=== PATIENT | male | born 1965 | race Caucasian/White ===

== ENCOUNTER 2020-02-10 00:50 | Day surgery (SDC) | payer SELFPAY ==
[2020-02-10] VITALS (18 sets, daily range): BP systolic 122–159; BP diastolic 64–99; PULSE 66–83; RESP 1–20; TEMP 35.9–37.4; O2SAT 92–100; BMI 29.9
--- NOTE | 2020-02-10 00:55 | ED_ITS ---
HPI - Abdominal Pain <DO Polly Hartley Last Filed: 02/14/20 07:32> General Chief Complaint: Skin/Abscess/Foreign Body Stated Complaint: anal abcess Time Seen by Provider: 02/10/20 00:54 Source: patient Mode of arrival: Ambulatory Limitations: no limitations History of Present Illness HPI narrative: This is a 54-year-old male who comes to the emergency department with complaint of rectal pain for the last several days. Patient states he has a history of rectal abscess several years ago. He states he was seen at [facility] in [place], he describes an incision and drainage but states that it did require a CT to evaluate. He unclear if this was done in the emergency department or if he was saw a surgeon. He has not had a fever. He denies any abdominal pain. He has had some mild nausea. He states that he has pain with bowel movements. He states that he has had normal bowel movements and has not been constipated. He denies any bloody bowel movements or melena. He states that he has felt like it is a little difficult to have urination but has been urinating regularly without dysuria, urgency or frequency. He states that he had a colonoscopy and was told that he had a fissure at 1 point but also that he had an abscess and had an incision and drainage. Patient states symptoms feel similar. He has not appreciated any swelling in the perineum it is all in the rectal region and states it does not feel deeper than the rectum. He denies any other medical issues, denies any home medications. Denies any other prior surgeries besides knee replacements. Denies any allergies to medications. Related Data Previous Rx's Medication Instructions Recorded docusate sodium 100 mg PO BID #60 cap 02/10/20 oxycodone 5 mg PO Q4H PRN #30 tab 02/10/20 Allergies Allergy/AdvReac Type Severity Reaction Status Date / Time No Known Drug Allergies Allergy Verified 02/10/20 01:14 Review of Systems <DO Polly Hartley Last Filed: 02/14/20 07:32> Review of Systems ROS Unobtainable: All systems reviewed & are unremarkable except as noted in HPI and below Patient History <DO Polly Hartley Last Filed: 02/14/20 07:32> Social History Smoking Status: Never smoker alcohol intake: current Exam <Elsie Allison DO - Last Filed: 02/14/20 07:32> Narrative Exam Narrative: GENERAL: Alert and oriented x three, GENERAL: Alert and oriented x three, well-nourished male in mild distress. HEENT: Head normocephalic, atraumatic, EOMI, pupils reactive, face symmetric, moist mucous membranes NECK: Supple, full range of motion CARDIOVASCULAR: Regular rate and rhythm without murmurs, rubs or gallops. RESPIRATORY: Breath sounds equal bilaterally, no wheezes rales or rhonchi. ABDOMEN: Soft, nontender. Normoactive bowel sounds all 4 quadrants. No guarding or rebound, rigidity, no mass. On digital rectal exam on visual exam I am unable to visualize any swelling or obvious erythema or palpable induration. Patient does have some moderate tenderness at the 8 o'clock position On internal exam patient is tender in the same area but I am also unable to evaluate or feel any induration, no external hemorrhoids are noted and I do not palpate any internally. No visual fissures are noted externally. There is no bright red blood or melena on exam. : No CVA tenderness EXTREMITIES: Normal range of motion, no clubbing or edema. Neurovascularly intact NEUROLOGICAL: Cranial nerves II through XII grossly intact. Moving all extremities SKIN: Warm, dry, no petechiae, no rashes or lesions Initial Vital Signs Initial Vital Signs: Vital Signs Temperature 98.0 F 02/10/20 01:05 Pulse Rate 83 02/10/20 01:05 Respiratory Rate 17 02/10/20 01:05 Blood Pressure 155/77 H 02/10/20 01:05 Pulse Oximetry 96 02/10/20 01:05 <Zenaida Montague MD - Last Filed: 02/10/20 11:20> Initial Vital Signs Initial Vital Signs: Vital Signs Temperature 98.0 F 02/10/20 01:05 Pulse Rate 83 02/10/20 01:05 Respiratory Rate 17 02/10/20 01:05 Blood Pressure 155/77 H 02/10/20 01:05 Pulse Oximetry 96 02/10/20 01:05 Course <Elsie Allison DO - Last Filed: 02/14/20 07:32> Orders Ordered: Discontinued Medications Acetaminophen (Tylenol) 325 mg PO PACUNOW PRN PRN Reason: Pain, Mild (1-3) Bupivacaine HCl/Epinephrine Bitart (Sensorcaine 0.25% W/ Epi (Pf)) 60 ml INJ NOW ONE Stop: 02/10/20 11:56 Last Admin: 02/10/20 11:55 Dose: 60 ml Documented by: HALEIGH Bupivacaine Liposome (Exparel) 266 mg INJ NOW ONE Stop: 02/10/20 12:04 Last Admin: 02/10/20 12:03 Dose: 266 mg Documented by: HALEIGH Dibucaine (Nupercainal 1% Oint) 1 applic TOP NOW ONE Stop: 02/10/20 12:03 Last Admin: 02/10/20 12:02 Dose: 1 applic Documented by: HALEIGH Fentanyl (Sublimaze) 50 mcg IV NOW PRN PRN Reason: Mikala-rectal pain Stop: 02/11/20 09:54 Last Admin: 02/10/20 09:57 Dose: 50 mcg Documented by: MAXIMINO Fentanyl (Sublimaze) 0 mcg IV Q5M PRN PRN Reason: Pain, Severe (7-10) Hydromorphone HCl (Dilaudid) 0 mg IV Q5MIN PRN PRN Reason: Pain, Mild (1-3) Hydromorphone HCl (Dilaudid) 0 mg IV Q5M PRN PRN Reason: Pain, Moderate (4-6) Sodium Chloride (Normal Saline 0.9%) 1,000 mls @ 1,000 mls/hr IV BOLUS ONE Stop: 02/10/20 02:04 Last Infusion: 02/10/20 02:57 Dose: 0 mls/hr Documented by: Admin: 02/10/20 01:13 Dose: 1,000 mls/hr Documented by: TOMMY Ampicillin Sodium/Sulbactam (Sodium 1.5 gm/ Sodium Chloride) 100 mls @ 100 mls/hr IV NOW ONE Stop: 02/10/20 03:20 Last Infusion: 02/10/20 04:16 Dose: 0 mls/hr Documented by: Admin: 02/10/20 03:25 Dose: 100 mls/hr Documented by: TOMMY Metronidazole (Flagyl) 500 mg in 100 mls @ 100 mls/hr IV NOW ONE Stop: 02/10/20 04:23 Last Infusion: 02/10/20 11:12 Dose: 0 mls/hr Documented by: Admin: 02/10/20 11:00 Dose: 100 mls/hr Documented by: Infusion: 02/10/20 05:20 Dose: 0 mls/hr Documented by: Admin: 02/10/20 04:16 Dose: 100 mls/hr Documented by: TOMMY Sodium Chloride (Normal Saline 0.9%) 1,000 mls @ 125 mls/hr IV CONT MARCY Last Infusion: 02/10/20 16:15 Dose: 0 mls/hr Documented by: Infusion: 02/10/20 09:45 Dose: 125 mls/hr Documented by: Admin: 02/10/20 04:16 Dose: 125 mls/hr Documented by: TOMMY Lactated Ringer's (Lactated Ringers) 1,000 mls @ 42 mls/hr IV CONT MARCY Cefazolin Sodium/Dextrose (Ancef) 2 gm in 100 mls @ 200 mls/hr IV NOW ONE Stop: 02/10/20 12:21 Last Infusion: 02/10/20 11:35 Dose: 0 mls/hr Documented by: Admin: 02/10/20 11:13 Dose: 200 mls/hr Documented by: CUONG Ketorolac Tromethamine (Toradol) 15 mg IV NOW ONE Stop: 02/10/20 01:07 Last Admin: 02/10/20 01:12 Dose: 15 mg Documented by: TOMMY Meperidine HCl (Demerol) 12.5 mg IV PACUNOW PRN PRN Reason: Mild pain or shivering Morphine Sulfate (Morphine) 2 mg IV NOW ONE Stop: 02/10/20 03:55 Last Admin: 02/10/20 04:15 Dose: 2 mg Documented by: TOMMY Ondansetron HCl (Zofran) 4 mg IV NOW PRN PRN Reason: Nausea And Vomiting Oxycodone/Acetaminophen (Percocet 5/325) 1 tab PO PACUNOW PRN PRN Reason: Mild or Moderate Pain Vital Signs Vital signs: Vital Signs - 8 hr 02/10/20 03:41 02/10/20 07:46 02/10/20 08:28 Pulse Rate 70 70 66 Respiratory Rate 20 18 Blood Pressure [Left Arm] 159/92 H 137/93 H Blood Pressure [Right Arm] 122/79 Pulse Oximetry 95 97 94 02/10/20 09:22 Pulse Rate 73 Respiratory Rate Blood Pressure [Left Arm] 124/84 Blood Pressure [Right Arm] Pulse Oximetry 97 <Zenaida Montague MD - Last Filed: 02/10/20 11:20> Orders Ordered: Discontinued Medications Acetaminophen (Tylenol) 325 mg PO PACUNOW PRN PRN Reason: Pain, Mild (1-3) Bupivacaine HCl/Epinephrine Bitart (Sensorcaine 0.25% W/ Epi (Pf)) 60 ml INJ NOW ONE Stop: 02/10/20 11:56 Last Admin: 02/10/20 11:55 Dose: 60 ml Documented by: HALEIGH Bupivacaine Liposome (Exparel) 266 mg INJ NOW ONE Stop: 02/10/20 12:04 Last Admin: 02/10/20 12:03 Dose: 266 mg Documented by: HALEIGH Dibucaine (Nupercainal 1% Oint) 1 applic TOP NOW ONE Stop: 02/10/20 12:03 Last Admin: 02/10/20 12:02 Dose: 1 applic Documented by: HALEIGH Fentanyl (Sublimaze) 50 mcg IV NOW PRN PRN Reason: Mikala-rectal pain Stop: 02/11/20 09:54 Last Admin: 02/10/20 09:57 Dose: 50 mcg Documented by: MAXIMINO Fentanyl (Sublimaze) 0 mcg IV Q5M PRN PRN Reason: Pain, Severe (7-10) Hydromorphone HCl (Dilaudid) 0 mg IV Q5MIN PRN PRN Reason: Pain, Mild (1-3) Hydromorphone HCl (Dilaudid) 0 mg IV Q5M PRN PRN Reason: Pain, Moderate (4-6) Sodium Chloride (Normal Saline 0.9%) 1,000 mls @ 1,000 mls/hr IV BOLUS ONE Stop: 02/10/20 02:04 Last Infusion: 02/10/20 02:57 Dose: 0 mls/hr Documented by: Admin: 02/10/20 01:13 Dose: 1,000 mls/hr Documented by: TOMMY Ampicillin Sodium/Sulbactam (Sodium 1.5 gm/ Sodium Chloride) 100 mls @ 100 mls/hr IV NOW ONE Stop: 02/10/20 03:20 Last Infusion: 02/10/20 04:16 Dose: 0 mls/hr Documented by: Admin: 02/10/20 03:25 Dose: 100 mls/hr Documented by: MMCASTRID Metronidazole (Flagyl) 500 mg in 100 mls @ 100 mls/hr IV NOW ONE Stop: 02/10/20 04:23 Last Infusion: 02/10/20 11:12 Dose: 0 mls/hr Documented by: Admin: 02/10/20 11:00 Dose: 100 mls/hr Documented by: Infusion: 02/10/20 05:20 Dose: 0 mls/hr Documented by: Admin: 02/10/20 04:16 Dose: 100 mls/hr Documented by: TOMMY Sodium Chloride (Normal Saline 0.9%) 1,000 mls @ 125 mls/hr IV CONT MARCY Last Infusion: 02/10/20 16:15 Dose: 0 mls/hr Documented by: Infusion: 02/10/20 09:45 Dose: 125 mls/hr Documented by: Admin: 02/10/20 04:16 Dose: 125 mls/hr Documented by: TOMMY Lactated Ringer's (Lactated Ringers) 1,000 mls @ 42 mls/hr IV CONT MARCY Cefazolin Sodium/Dextrose (Ancef) 2 gm in 100 mls @ 200 mls/hr IV NOW ONE Stop: 02/10/20 12:21 Last Infusion: 02/10/20 11:35 Dose: 0 mls/hr Documented by: Admin: 02/10/20 11:13 Dose: 200 mls/hr Documented by: CUONG Ketorolac Tromethamine (Toradol) 15 mg IV NOW ONE Stop: 02/10/20 01:07 Last Admin: 02/10/20 01:12 Dose: 15 mg Documented by: TOMMY Meperidine HCl (Demerol) 12.5 mg IV PACUNOW PRN PRN Reason: Mild pain or shivering Morphine Sulfate (Morphine) 2 mg IV NOW ONE Stop: 02/10/20 03:55 Last Admin: 02/10/20 04:15 Dose: 2 mg Documented by: MMCFARL Ondansetron HCl (Zofran) 4 mg IV NOW PRN PRN Reason: Nausea And Vomiting Oxycodone/Acetaminophen (Percocet 5/325) 1 tab PO PACUNOW PRN PRN Reason: Mild or Moderate Pain Vital Signs Vital signs: Vital Signs - 8 hr 02/10/20 03:41 02/10/20 07:46 02/10/20 08:28 Pulse Rate 70 70 66 Respiratory Rate 20 18 Blood Pressure [Left Arm] 159/92 H 137/93 H Blood Pressure [Right Arm] 122/79 Pulse Oximetry 95 97 94 02/10/20 09:22 Pulse Rate 73 Respiratory Rate Blood Pressure [Left Arm] 124/84 Blood Pressure [Right Arm] Pulse Oximetry 97 MDM - Abdominal Pain <Elsie Allison DO - Last Filed: 02/14/20 07:32> Lab Data Attestation: I reviewed the patient's lab results. Result diagrams: 02/10/20 01:02 02/10/20 01:02 Labs: Lab Results 02/10/20 02/10/20 02/10/20 Range/Units 01:02 01:02 03:30 WBC 16.8 H (4.5-11.0) X10^3/uL RBC 4.99 (4.5-5.9) X10^6/uL Hgb 15.5 (13.5-17.5) g/dL Hct 45.9 (41-53) % MCV 92.0 (80-100) fL MCH 31.0 (26-34) PG MCHC 33.7 (30-36) % RDW 13.7 (11.6-14.8) % Plt Count 191 (150-400) X10^3/uL Neut % (Auto) 76.5 H (50-75) % Lymph % (Auto) 13.5 L (25-40) % [place] % (Auto) 9.1 (3-14) % Eos % (Auto) 0.4 L (2-4) % Baso % (Auto) 0.5 (0-2) % Neut # (Auto) 22477 H (7002-6583) /uL Lymph # (Auto) 2300 (8393-1550) /uL [place] # (Auto) 1500 H (0-900) /uL Eos # (Auto) 100 (0-450) /uL Baso # (Auto) 100 (0-100) /uL Sodium 136 L (137-145) mmol/L Potassium 4.1 (3.4-5.1) mmol/L Chloride 102 (98-107) mmol/L Carbon Dioxide 28 (22-32) mmol/L BUN 17 (9-20) mg/dL Creatinine 0.82 (0.66-1.25) mg/dL Estimated GFR > 60.0 (>60) mL/min BUN/Creatinine Ratio 20.7 (6-22) Glucose 120 H (70-100) mg/dL Calcium 9.6 (8.4-10.2) mg/dL Total Bilirubin 0.4 (0.2-1.3) mg/dL AST 27 (17-59) IU/L ALT 31 (<50) IU/L Alkaline Phosphatase 78 (38-126) U/L Total Protein 7.7 (6.3-8.2) g/dL Albumin 4.4 (3.5-5.0) g/dL Globulin 3.3 (1.7-4.1) g/dL Albumin/Globulin Ratio 1.3 (1.0-2.8) Lipase < 10 L (23-300) U/L Urine RBC None seen (0-5/HPF) Urine WBC None seen (0-5/HPF) Urine Bacteria None seen (None) Ur Culture Indicated? Cult not indicated Point of care testing: Urine Dip Bedside Urine Glucose Negative Bedside Urine Bilirubin - Negative Bedside Urine Ketone - Negative Urine Specific Pingree 1.015 Bedside Urine Occult Blood +/- Bedside Urine pH 5.5 Bedside Urine Protein +/- 15 Bedside Urine Urobilinogen - Negative Bedside Urine Nitrite - Negative Bedside Urine Leukocytes - Negative Esterase Imaging Data CT scan - abdomen/pelvis: Radiologist's Impression: Posterior to the anal rectal junction is a midline well-circumscribed rim enhancing fluid collection consistent with history of abscess, measures 2.5 x 3.5 x 1.7 cm and adjacent soft tissues are unremarkable, rectum is otherwise unremarkable appearance. No intrapelvic ext ension. No gas is seen in the soft tissues. No fistula is identified. No intrapelvic and section. Cholelithiasis and left renal cyst are noted. ECG Data Attestation: I personally reviewed and interpreted this ECG as follows: Interpretation: . MDM Narrative Medical decision making narrative: Discussed with patient there is no obvious abscess that I am able to palpate, he may have a fissure but sounds like he has had a prior abscess in the past which during discussion required ACT imaging to evaluate. Plan for CT imaging. Labs do show an elevated white count at 16.8 with a left shift 76% neutrophils. Electrolytes show sodium 136 and a glucose of 120 with otherwise normal electrolytes and renal function and normal LFTs. CT imaging shows small posterior perirectal fluid collection consistent with abscess with no intrapelvic extension. Cholelithiasis and left renal cysts are noted. I spoke with Dr. Mcmillan from general surgery, states plan for OR. This would be in the next several hours so plan to board the patient in the emergency department. He is NPO, discussed antibiotics and plan for Unasyn and Flagyl IV, continuous fluids in the department and Dr. Mcmillan will see him this morning around 6:30-7am. Patient I discussed the plan he is comfortable with this plan and aware that plan for OR this morning with likely same day surgery and discharge. His pain had improved with Toradol but is starting to return and was given a dose of narcotic pain medication. <Zenaida Montague MD - Last Filed: 02/10/20 11:20> Lab Data Labs: Lab Results 02/10/20 02/10/20 02/10/20 Range/Units 01:02 01:02 03:30 WBC 16.8 H (4.5-11.0) X10^3/uL RBC 4.99 (4.5-5.9) X10^6/uL Hgb 15.5 (13.5-17.5) g/dL Hct 45.9 (41-53) % MCV 92.0 (80-100) fL MCH 31.0 (26-34) PG MCHC 33.7 (30-36) % RDW 13.7 (11.6-14.8) % Plt Count 191 (150-400) X10^3/uL Neut % (Auto) 76.5 H (50-75) % Lymph % (Auto) 13.5 L (25-40) % [place] % (Auto) 9.1 (3-14) % Eos % (Auto) 0.4 L (2-4) % Baso % (Auto) 0.5 (0-2) % Neut # (Auto) 79340 H (1420-0442) /uL Lymph # (Auto) 2300 (8067-1351) /uL [place] # (Auto) 1500 H (0-900) /uL Eos # (Auto) 100 (0-450) /uL Baso # (Auto) 100 (0-100) /uL Sodium 136 L (137-145) mmol/L Potassium 4.1 (3.4-5.1) mmol/L Chloride 102 (98-107) mmol/L Carbon Dioxide 28 (22-32) mmol/L BUN 17 (9-20) mg/dL Creatinine 0.82 (0.66-1.25) mg/dL Estimated GFR > 60.0 (>60) mL/min BUN/Creatinine Ratio 20.7 (6-22) Glucose 120 H (70-100) mg/dL Calcium 9.6 (8.4-10.2) mg/dL Total Bilirubin 0.4 (0.2-1.3) mg/dL AST 27 (17-59) IU/L ALT 31 (<50) IU/L Alkaline Phosphatase 78 (38-126) U/L Total Protein 7.7 (6.3-8.2) g/dL Albumin 4.4 (3.5-5.0) g/dL Globulin 3.3 (1.7-4.1) g/dL Albumin/Globulin Ratio 1.3 (1.0-2.8) Lipase < 10 L (23-300) U/L Urine RBC None seen (0-5/HPF) Urine WBC None seen (0-5/HPF) Urine Bacteria None seen (None) Ur Culture Indicated? Cult not indicated Point of care testing: Urine Dip Bedside Urine Glucose Negative Bedside Urine Bilirubin - Negative Bedside Urine Ketone - Negative Urine Specific [place] 1.015 Bedside Urine Occult Blood +/- Bedside Urine pH 5.5 Bedside Urine Protein +/- 15 Bedside Urine Urobilinogen - Negative Bedside Urine Nitrite - Negative Bedside Urine Leukocytes - Negative Esterase Discharge Plan Departure Patient Disposition: Admitted as Observation Clinical Impression: Abscess of anal and rectal regions, Cyst of left kidney Discharge Date/Time: 02/10/20 18:04 Stand Alone Forms: Surgery Discharge
--- NOTE | 2020-02-10 01:05 | DI.CT.S_ITS ---
PROCEDURE: CT ABDOMEN PELVIS W CON INDICATIONS: rectal pain, history of rectal abscess. palpable abscess noted TECHNIQUE: After the administration of intravenous contrast, 5 mm thick sections acquired from the diaphragm to the symphysis. 5 mm coronal and sagittal reformats were acquired. For radiation dose reduction, the following was used: automated exposure control, adjustment of mA and/or kV according to patient size. COMPARISON: [facility], CT, CT ABD PELVIS W CON, 05/13/2017, 19:23. FINDINGS: Image quality: Excellent. Lung bases: There is mild linear atelectasis and scarring in the lung bases. Heart size is normal. Solid organs: Evaluation of the liver demonstrates no focal hepatic lesions. The gallbladder demonstrates a few dependent calcified gallstones without wall thickening or pericholecystic fluid. The pancreas demonstrates mild fatty atrophy in the uncinate process. There are a few punctate calcifications within the pancreas consistent with sequela of chronic pancreatitis. The bony and her who is in a he's not he's to a node in no No peripancreatic fat stranding or fluid collections. No pancreatic duct dilatation. The spleen is normal in size. No adrenal nodules. Kidneys demonstrate no hydronephrosis. There is a stable small exophytic cyst. Peritoneum and bowel: Small bowel loops demonstrate normal wall thickness and caliber. There is segmental wall thickening in the rectum with a peripherally-enhancing posterior perirectal fluid collection measuring approximately 2.9 x 2.8 x 2.6 cm. There is associated inflammatory fat stranding. No CT evidence of trans-sphincteric extension beyond the external sphincter. A discrete fistula is not well visualized on CT. A few colonic diverticular are noted without acute diverticulitis. No pericecal inflammatory changes to suggest appendicitis. Nodes and vessels: No retroperitoneal or mesenteric adenopathy by size criteria. Aorta and inferior vena cava are normal in size. Miscellaneous: No ventral hernias. Multiple calcifications are demonstrated along the inguinal canal and in the scrotum likely represent phleboliths. PELVIS: Genitourinary: Bladder wall thickness is normal. Miscellaneous: No inguinal hernias or adenopathy. Bones: No suspicious bony lesions. No vertebral body compression fractures. IMPRESSION: 1. Recurrent posterior perirectal abscess demonstrated without definite trans- sphincteric extension. A fistula is not well visualized on CT. Further evaluation may be obtained with an MRI if clinically indicated. Dictated by: Cj Henry M.D. on 02/10/2020 at 8:25 Approved by: Cj Henry M.D. on 02/10/2020 at 8:40
[2020-02-10] MEDS: KETOROLAC 60 MG/2 ML VIAL 15 MG IV (01:12)
[2020-02-10] MEDS: SODIUM CHLORIDE 0.9% 1,000 ML 1000 ML IV (01:13)
[2020-02-10 01:17] LABS: Add Manual Diff / Slide Review NO; Basophils Absolute Auto 100 /uL (0-100); Basophils Percent Auto 0.5 % (0-2); Eosinophils Absolute Auto 100 /uL (0-450); Eosinophils Percent Auto 0.4 % (2-4); Hematocrit 45.9 % (41-53); Hemoglobin 15.5 g/dL (13.5-17.5); Lymphocytes Absolute Auto 2300 /uL (1100-4500); Lymphocytes Percent Auto 13.5 % (25-40); Mean Corpuscular HGB Conc 33.7 % (30-36); Monocytes Absolute Auto 1500 /uL (0-900); Monocytes Percent Auto 9.1 % (3-14); Neutrophils Absolute Auto 12800 /uL (1500-7000); Neutrophils Percent Auto 76.5 % (50-75); Platelet Count 191 X10^3/uL (150-400); Red Blood Cell Count 4.99 X10^6/uL (4.5-5.9); Red Cell Distribution Width 13.7 % (11.6-14.8); White Blood Cell Count 16.8 X10^3/uL (4.5-11.0)
[2020-02-10 01:25] LABS: Alanine Aminotransferase 31 IU/L (<50); Albumin 4.4 g/dL (3.5-5.0); Albumin Globulin Ratio 1.3 (1.0-2.8); Alkaline Phosphatase 78 U/L (38-126); Aspartate Aminotransferase 27 IU/L (17-59); BUN Creatinine Ratio 20.7 (6-22); Bilirubin Total 0.4 mg/dL (0.2-1.3); Blood Urea Nitrogen 17 mg/dL (9-20); Calcium 9.6 mg/dL (8.4-10.2); Carbon Dioxide 28 mmol/L (22-32); Chloride 102 mmol/L (98-107); Estimated Glomerular Filt Rate > 60.0 mL/min (>60); Globulin 3.3 g/dL (1.7-4.1); Glucose 120 mg/dL (70-100); HEMOLYSIS < 15 (0-50); Potassium 4.1 mmol/L (3.4-5.1); Sodium 136 mmol/L (137-145); Total Protein 7.7 g/dL (6.3-8.2)
[2020-02-10 01:26] LABS: Lipase < 10 U/L (23-300)
[2020-02-10] MEDS: AMPICILLIN/SULBACTAM 1.5 GM 1.5 GM in SODIUM CHLORIDE 0.9% 100 ML IV (03:25)
[2020-02-10 03:40] LABS: Bacteria Urine None Seen; RBC Urine None Seen (0-5/HPF); WBC Urine None Seen (0-5/HPF)
[2020-02-10 03:54] LABS: Culture Indicated Urine Cult Not Indicated
[2020-02-10] MEDS: MORPHINE 2 MG/ML INJ IV (04:15)
[2020-02-10] MEDS: SODIUM CHLORIDE 0.9% 1,000 ML 125 ML IV (04:16)
[2020-02-10] MEDS: metroNIDAZOLE 500 MG/100 ML PIGGYBACK 100 MG IV ×2 (04:16→11:00)
--- NOTE | 2020-02-10 07:44 | P.HP_ITS ---
History of Present Illness History of Present Illness Date Patient Seen: 02/10/20 Time Patient Seen: 07:15 Chief complaint: anal abcess Narrative: This is a 54-year-old man with history of rectal abscess, complicated appendicitis many years ago, multiple SBO does, and lysis of adhesion for SBO. He presented to the ER during the night with 3-4 days of rectal pain, leukocytosis with a white count of 16, and an abscess at the anorectal junction on CT scan. He has a history of rectal abscess several years ago which was incised, drained, and a drain was left in. This was done in [place], per the patient. ROS: He denies constipation, diarrhea, vomiting. He reports some nausea. He reports some generalized abdominal tenderness. He denies cough, fever, respiratory symptoms, respiratory contact, or known CV 19 contacts. Thirteen system review is otherwise negative other than as mentioned below and in HPI. PE: GENERAL: Alert, moderately uncomfortable, but in no acute distress. Appears stated age. Answers questions promptly and appropriately. Vital signs noted. HENT: Normocephalic, atraumatic. Hearing intact. Oral mucosa is pink and moist. EYES: Conjunctiva pink, sclera white, no periorbital swelling. CARDIOVASCULAR: Regular rate. No pedal edema. RESPIRATORY: Non-tachypneic, breathing comfortably on room air. GASTROINTESTINAL: Abdomen soft and non-distended; mild, diffuse tenderness on deep palpation Rectal exam: Deferred GENITALURINARY: No flank tenderness. MUSCULOSKELETAL: Equal tone and mass bilaterally. SKIN: Warm, dry, soft, appropriate color for ethnicity. No other lesions, rashes, or wounds. NEURO: Alert and Oriented X 3. No gross sensory deficits, or cognitive issues. PSYCH: Appropriate affect and mood. Patient History Family & Social History Safety & Behavioral: Feels Safe in Current Yes Environment Tobacco & Substance use: Smoking Status Never smoker alcohol intake frequency 0-2 drinks per day Substance Use Type does not use Meds Home Medications and Allergies Home Medications Medication Instructions Recorded Confirmed Type No Known Home Medications 02/10/20 02/10/20 History Allergies Allergy/AdvReac Type Severity Reaction Status Date / Time No Known Drug Allergies Allergy Verified 02/10/20 01:14 Exam Vital Signs (past 8 hours): - 02/10/20 01:05 02/10/20 03:00 02/10/20 03:41 Temperature 98.0 F Pulse Rate 83 77 70 Respiratory Rate 17 15 20 Blood Pressure 155/77 H Blood Pressure [Right Arm] 141/64 H 122/79 Pulse Oximetry 96 98 95 Oxygen Delivery Method Room Air Objective Imaging CT scan - abdomen: Radiologist's impression: Posterior to the anal rectal junction is a midline well-circumscribed rim enhancing fluid collection consistent with history of abscess, measures 2.5 x 3.5 x 1.7 cm and adjacent soft tissues are unremarkable, rectum is otherwise unremarkable appearance. No intrapelvic extension. No gas is seen in the soft tissues. No fistula is identified. No intrapelvic extension. Cholelithiasis and left renal cyst are noted. Labs Result Diagrams: 02/10/20 01:02 02/10/20 01:02 Labs: Laboratory Results - last 24 hr 02/10/20 02/10/20 02/10/20 01:02 01:02 03:30 WBC 16.8 H RBC 4.99 Hgb 15.5 Hct 45.9 MCV 92.0 MCH 31.0 MCHC 33.7 RDW 13.7 Plt Count 191 Neut % (Auto) 76.5 H Lymph % (Auto) 13.5 L [place] % (Auto) 9.1 Eos % (Auto) 0.4 L Baso % (Auto) 0.5 Neut # (Auto) 13734 H Lymph # (Auto) 2300 [place] # (Auto) 1500 H Eos # (Auto) 100 Baso # (Auto) 100 Sodium 136 L Potassium 4.1 Chloride 102 Carbon Dioxide 28 BUN 17 Creatinine 0.82 Estimated GFR > 60.0 BUN/Creatinine Ratio 20.7 Glucose 120 H Calcium 9.6 Total Bilirubin 0.4 AST 27 ALT 31 Alkaline Phosphatase 78 Total Protein 7.7 Albumin 4.4 Globulin 3.3 Albumin/Globulin Ratio 1.3 Lipase < 10 L Urine RBC None seen Urine WBC None seen Urine Bacteria None seen Ur Culture Indicated? Cult not indicated Assessment & Plan Assessment and plan (1) Leukocytosis: Current visit: Yes Status: Acute (2) Abscess of anal and rectal regions: Current visit: Yes Status: Acute (3) History of small bowel obstruction: Current visit: Yes Status: Acute (4) History of appendectomy: Current visit: Yes Status: Acute (5) History of postoperative complication of surgical procedure: Current visit: Yes Status: Acute (6) History of rectal abscess: Current visit: Yes Status: Acute Assessment & Plan narrative: This is a 54-year-old man with a high anorectal abscess which is at the anorectal junction on CT scan. We will plan on draining this surgically today. The patient has been started on antibiotics, and has been NPO at least since midnight. He is otherwise relatively healthy by history, in terms of his cardiopulmonary function. He denies any current cough, fever, shortness of breath, or other viral symptoms. 15 minutes were spent face to face with the patient. More than 50% of the time was spent in counseling and co-ordination of care regarding plan for anorectal abscess drainage, possible seton placement, possible Molly drain placement, possible hospital admission, risk of [place] 19 exposure, need for endotracheal intubation, risk of anocutaneous fistula formation, risk of abscess recurrence, possible need for additional procedures, wound care, packing, and drain management. The patient desires to proceed with surgery. Plan: NPO IV antibiotics IV fluids To OR this AM for urgent incision and drainage of rectal abscess, possible seton placement, possible drain placement Dispo to obs or home pending intra op findings Quality VTE Deep Vein Thrombosis/Pulmonary Embolism Present on Admission: No
[2020-02-10] MEDS: fentaNYL 100 MCG/2 ML INJ 50 MCG IV (09:57)
--- NOTE | 2020-02-10 10:14 | SUR.HOLD ---
States that pain is better at 3/10, declines need for more medication. Put on continuous pulse ox prior to medication administration. Now is calm and appreciative. HR 74, RA sat 94%. SCDs on.
--- NOTE | 2020-02-10 10:56 | SUR.HOLD ---
states that he's doing well; rates pain at 2-3. informed him that it won't be much longer until he goes in for surgery
[2020-02-10] MEDS: CEFAZOLIN 2 GM/100 ML FROZ.PIGGY IV (11:13)
--- NOTE | 2020-02-10 11:48 | SUR.OPER ---
Lithotomy on padded OR bed, head on pillow, arms secured on padded arm boards at <90 degrees abduction. Legs secured in padded yellow fins stirrups.
[2020-02-10] MEDS: BUPIVACAINE 0.25% W/ EPI 30 ML VIAL 60 ML INJ (11:55)
[2020-02-10] MEDS: DIBUCAINE 1% OINT 28 GM 1 APPLIC TOP (12:02)
[2020-02-10] MEDS: BUPIVACAINE LIPOSOME 266 MG/20 ML VIAL INJ (12:03)
--- NOTE | 2020-02-10 13:00 | SUR.PHASEI ---
Dr. Mcmillan spoke with patient, plan is to go home, girlfriend [place] come [place] ferry. Option to admit OBS if needed. Pt. alert and oriented, denies pain/nausea, food and fluids given.
--- NOTE | 2020-02-10 13:02 | SUR.PHASEI ---
IV site good, unable to add assessment
--- NOTE | 2020-02-10 13:07 | SUR.PHASEI ---
report given to Nick Salazar RN. Pt sitting up, eating, voices appreciation. Comfortable and very happy to have had the surgery.
--- NOTE | 2020-02-10 14:01 | SUR.PHASEII ---
resumed care, denies pain/nausea, just waiting [place] ride [place]
--- NOTE | 2020-02-10 14:07 | PM.OP.1 ---
Operative Date/Time/Diagnoses Date of procedure: 02/10/20 Time of procedure: 13:07 Pre-op diagnosis: Rectal abscess Post-op diagnosis: same Procedure & Clinicians Procedure: Drainage of rectal abscess Same procedure as scheduled: Yes Indications: Perirectal abscess Surgeon: Coral Mcmillan Anesthesia Type: General (With LMA) Operative Notes Findings: Intersphincteric deep posterior rectal abscess Specimen(s): other (Rectal abscess fluid culture) Estimated Blood Loss (mL): 1 Blood products transfused: none Procedure in detail: The patient was brought into the OR, placed in supine position. General anesthesia was induced and the patient was intubated with an LMA. 30 minute delay was conducted before non-anesthesia OR staff were allowed in the room due to viral precautions. The patient was then placed in high lithotomy position and his perianal area was prepped and draped in sterile fashion. Surgical time out was conducted. Local anesthetic was used to place a four quadrant block in the perianal area using 5ml of 0.25% Marcaine with epinephrine in each quadrant. A well lubricated baconton ware retractor was used to dilate the rectum and to expose the posterior anal canal. The posterior wall of the anus was palpated and a large nodule was palpated in the posterior anal canal. A syringe with an 18 guage needle was used to locate the abscess and to draw out purulent fluid. Once the abscess was identified, the needle hole which was just at the posterior midline anal verge, was enlarged slightly with a tonsil clamp. Copious purulent fluid poured out. The opening was enlarged slightly, and the abscess was found to be intersphincteric. I enlarged the opening slightly more and was able to use my index finger to palpate within the cavity. There was no extension up into the pelvis, and the cavity was thoroughly washed out and debrided. The opening of the abscess cavity was about 1 cm, and I felt that it would not benefit the patient to place a drain into this cavity. I did not feel that was worthy of a seton, as I did not find an intra rectal communication or fistula. At this point once the cavity was washed out I placed a rolled Gelfoam with Nupercaine into the rectum for hemostasis and pain relief. I gave additional short-acting anesthetic injected locally, and then I also gave 20 mL of Exparel given in small aliquots throughout the involved area of anoderm and surrounding soft tissue. The anal sphincter muscles were left intact, and were not divided. The skin was not closed, but was left open to gradually heal from the inside out. There was some minimal bleeding, but it slow down and stopped on its own with pressure from the Gelfoam. A stack of 4 x 4 gauze was taped onto the outer anal area to catch any drainage. Mesh underwear was then placed on top of the gauze dressing to hold the gauze dressing on. Needle sponge and instrument counts were correct x2 at the end of the procedure. The patient tolerated procedure well. The patient was transferred onto his hospital bed. Myself and the other staff not involved and extubation then scrubbed out and left the room for extubation. 30 minutes after extubation, the patient was brought out of the room and transferred to the postanesthesia care unit stable condition. Post-operative Condition: stable Disposition: PACU
--- NOTE | 2020-02-10 14:29 | SUR.PHASEII ---
Stable, declines any needs. Prescription taken to [facility] for patient convenience. Ambulated to the bathroom and voided, stable on feet. Declines more food/fluids. Awake, using cell phone.
--- NOTE | 2020-02-10 15:03 | SUR.PHASEII ---
Have repeatedly checked on the patient, denies any needs, just waiting for transportation. VSS take, HOB lowered and lights dimmed so that he can sleep.
== END 2020-02-10 19:00 | disposition home or self-care (01) ==
LOC: ED 07:40 → AC 09:37 → ED 14:07 → OR 02-16 09:10
PROVIDERS: Emergency Provider Emergency Medicine; PCP Family Medicine; Referring Provider Emergency Medicine; Visit Provider Surgery
PROC: (CPT 46040; principal; 2020-02-10 10:45)
DX: K61.2 Anorectal abscess (principal)
CPT/HCPCS: 10060; 36415; 74177; 80053; 81003; 81015; 83690; 85025; 87070; 87075; 87076; 87077; 87186; 87205; 96361; 96365; 96367; 96375; 99218; 99284; C9290; J0295; J0690; J1100; J1170; J1885; J2250; J2270; J2405; J2704; J3010; Q9967

== ENCOUNTER 2022-01-25 06:16 | Emergency (ER) | payer BC, SELFPAY ==
[2022-01-25 06:24] VITALS: BP 171/111; PULSE 80; RESP 14; TEMP 36.7; O2SAT 94
--- NOTE | 2022-01-25 06:35 | PC.NURSE ---
pt has been taking advil for the pain without relief but has not taken any in the last 12 hrs, a friend gave him a percocet yesterday that did provide some relief, pt denies any SOB and was evaluated per medics and on the hill when the event occurred pain is to the right rib cage
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
--- NOTE | 2022-01-25 07:09 | DI.CT.S_ITS ---
PROCEDURE: CT CHEST WO CON INDICATIONS: Right side and sternal pain/injury/fall TECHNIQUE: Noncontrast 5 mm thick sections acquired from the pulmonary apices to the posterior costophrenic angles. 1 mm lung window, 5 mm thick coronal and sagittal and 7 mm axial MIP reformats were then acquired. For radiation dose reduction, the following was used: automated exposure control, adjustment of mA and/or kV according to patient size. COMPARISON: None. FINDINGS: Image quality: Excellent. Lungs and pleura: There are confluent bandlike opacities within the inferior right middle and lower lobes suggestive of atelectasis. The differential includes consolidation or aspiration. Linear areas of atelectasis are also demonstrated within the left lower lobe and lingula. No pleural effusions or pneumothorax. There is dependent mucus within the right mainstem bronchus and bronchus intermedius extending into the right lower lobe bronchus. Mediastinum: Heart size is normal. There is trace pericardial fluid. No mediastinal adenopathy by size criteria. Thoracic aorta and central pulmonary arteries are normal in size. No definite retrosternal or other mediastinal hematoma. There is ill-defined fat stranding in the anterior mediastinum which may represent a mild contusion. Esophagus is normal in caliber. No hiatal hernia. Bones and chest wall: There is a nondepressed relatively nondisplaced sternal fracture involving the right aspect of the manubrium extending to the sternoclavicular joint. Nondisplaced fractures are also demonstrated within the right 2nd through 6th ribs laterally. No suspicious bony lesions. No vertebral body compression fractures. No axillary or supraclavicular adenopathy by size criteria. Thyroid gland demonstrates no discrete nodules. Abdomen: Visualized upper abdomen demonstrates a few calcified gallstones in the gallbladder without wall thickening or pericholecystic fluid to suggest cholecystitis. There is mild nonspecific perinephric stranding bilaterally. There is a partially visualized exophytic cyst laterally in the left kidney. IMPRESSION: 1. Nondepressed minimally displaced sternal fracture involving the right aspect of the manubrium extending to the sternoclavicular joint. No definite retrosternal hematoma. Mild fat stranding in the anterior mediastinum is nonspecific and may represent a mild contusion. 2. Nondisplaced fractures of the right 2nd through 6th ribs. Given the location of the fractures, consider CT angiogram to exclude acute aortic injury. 3. Confluent region of consolidation medially in the right lower lobe as well as bandlike areas of atelectasis bilaterally and in the lung bases. The area of consolidation may reflect sequelae of aspiration given the presence of mucus in the airways or possibly atelectasis due to poor inspiratory effort from the multiple rib fractures. The imaging differential also includes pneumonia. The appearance is atypical for pulmonary contusions. Findings discussed with Dr. Tadeo on 01/25/2022 at 8:10 a.m.. Dictated by: Cj Henry M.D. on 01/25/2022 at 8:03 Approved by: Cj Henry M.D. on 01/25/2022 at 8:18
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
[2022-01-25 08:30] LABS: Add Manual Diff / Slide Review NO; Basophils Absolute Auto 100 /uL (0-100); Basophils Percent Auto 0.8 % (0-2); Eosinophils Absolute Auto 100 /uL (0-450); Eosinophils Percent Auto 0.8 % (2-4); Hematocrit 45.7 % (41-53); Hemoglobin 15.8 g/dL (13.5-17.5); Lymphocytes Absolute Auto 2100 /uL (1100-4500); Lymphocytes Percent Auto 19.6 % (25-40); Mean Corpuscular HGB Conc 34.6 % (30-36); Mean Corpuscular Hemoglobin 31.6 PG (26-34); Mean Corpuscular Volume 91.3 fL (80-100); Monocytes Absolute Auto 1000 /uL (0-900); Monocytes Percent Auto 9.3 % (3-14); Neutrophils Absolute Auto 7500 /uL (1500-7000); Neutrophils Percent Auto 69.5 % (50-75); Platelet Count 174 X10^3/uL (150-400); Red Cell Distribution Width 13.7 % (11.6-14.8); White Blood Cell Count 10.8 X10^3/uL (4.5-11.0)
[2022-01-25 08:40] LABS: BUN Creatinine Ratio 22.8 (6-22); Blood Urea Nitrogen 18 mg/dL (9-20); Calcium 9.2 mg/dL (8.4-10.2); Carbon Dioxide 24 mmol/L (22-32); Chloride 105 mmol/L (98-107); Estimated Glomerular Filt Rate > 60.0 mL/min (>60); Glucose 113 mg/dL (70-100); HEMOLYSIS < 15 (0-50); Potassium 4.1 mmol/L (3.4-5.1); Sodium 139 mmol/L (137-145)
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
[2022-01-25 09:38] VITALS: BP 150/107; PULSE 71; O2SAT 97
== END 2022-01-25 09:39 | disposition home or self-care (01) ==
PROVIDERS: Emergency Provider Emergency Medicine; PCP Family Medicine
DX: S22.20XA Unspecified fracture of sternum, initial encounter for closed fracture (principal); S22.41XA Multiple fractures of ribs, right side, initial encounter for closed fracture; Z88.6 Allergy status to analgesic agent; Z88.5 Allergy status to narcotic agent; W19.XXXA Unspecified fall, initial encounter; Y92.89 Other specified places as the place of occurrence of the external cause
CPT/HCPCS: 71250; 71275; 73130; 80048; 85025; 99281; 99284

== ENCOUNTER → 2022-02-23 08:47 | Outpatient (CLI) | payer BC, SELFPAY ==
[2022-02-23 18:40] LABS: Alanine Aminotransferase 30 IU/L (<50); Albumin 4.1 g/dL (3.5-5.0); Albumin Globulin Ratio 1.5 (1.0-2.8); Alkaline Phosphatase 121 U/L (38-126); Aspartate Aminotransferase 28 IU/L (17-59); BUN Creatinine Ratio 27.6 (6-22); Bilirubin Total 0.5 mg/dL (0.2-1.3); Blood Urea Nitrogen 24 mg/dL (9-20); Calcium 9.4 mg/dL (8.4-10.2); Carbon Dioxide 28 mmol/L (22-32); Chloride 106 mmol/L (98-107); Cholesterol 179 mg/dL (140-199); Estimated Glomerular Filt Rate > 60 mL/min (>60); Globulin 2.7 g/dL (1.7-4.1); Glucose 106 mg/dL (70-100); HDL Cholesterol 34 mg/dL (40-60); HEMOLYSIS < 15 (0-50); LDL Cholesterol Calculated 124 mg/dL (<100); Potassium 4.2 mmol/L (3.4-5.1); Sodium 140 mmol/L (137-145); Total Protein 6.8 g/dL (6.3-8.2); Triglycerides 106 mg/dL (35-150)
[2022-02-23 18:48] LABS: Add Manual Diff / Slide Review NO; Basophils Absolute Auto 0 /uL (0-100); Basophils Percent Auto 0.6 % (0-2); Eosinophils Absolute Auto 100 /uL (0-450); Eosinophils Percent Auto 1.7 % (2-4); Hematocrit 45.2 % (41-53); Hemoglobin 15.7 g/dL (13.5-17.5); Lymphocytes Absolute Auto 2500 /uL (1100-4500); Lymphocytes Percent Auto 29.7 % (25-40); Mean Corpuscular HGB Conc 34.6 % (30-36); Mean Corpuscular Hemoglobin 31.3 PG (26-34); Mean Corpuscular Volume 90.5 fL (80-100); Monocytes Absolute Auto 700 /uL (0-900); Monocytes Percent Auto 8.2 % (3-14); Neutrophils Absolute Auto 5000 /uL (1500-7000); Neutrophils Percent Auto 59.8 % (50-75); Platelet Count 203 X10^3/uL (150-400); White Blood Cell Count 8.4 X10^3/uL (4.5-11.0)
[2022-02-23 19:09] LABS: Prostate Specific Antigen Scrn 6.15 ng/mL (0.1-4.0)
== END ==
PROVIDERS: PCP Family Medicine; Visit Provider Family Medicine
DX: I10 Essential (primary) hypertension (principal); Z12.5 Encounter for screening for malignant neoplasm of prostate
CPT/HCPCS: 80053; 80061; 85025; G0103

== ENCOUNTER → 2022-03-07 10:59 | Outpatient (CLI) | payer BC, SELFPAY ==
[2022-03-07 18:45] LABS: Hemoglobin A1C% w Est Avg Glu 5.9 % (4.0-6.0)
[2022-03-09 06:28] LABS: PSA Free % 16.9 % (.); PSA, Total 5.9 ng/mL (0.0-4.0)
== END ==
PROVIDERS: PCP Family Medicine; Visit Provider Family Medicine
DX: R73.01 Impaired fasting glucose (principal); R97.20 Elevated prostate specific antigen [PSA]
CPT/HCPCS: 83036; 84153; 84154

== ENCOUNTER → 2023-03-28 11:04 | Outpatient (CLI) | payer BC, SELFPAY ==
[2023-03-28 19:18] LABS: Add Manual Diff / Slide Review NO; Basophils Absolute Auto 100 /uL (0-100); Basophils Percent Auto 0.8 % (0-2); Eosinophils Absolute Auto 100 /uL (0-450); Eosinophils Percent Auto 0.9 % (2-4); Hematocrit 44.6 % (41-53); Hemoglobin 15.3 g/dL (13.5-17.5); Lymphocytes Absolute Auto 2400 /uL (1100-4500); Lymphocytes Percent Auto 31.1 % (25-40); Mean Corpuscular HGB Conc 34.4 % (30-36); Mean Corpuscular Hemoglobin 31.6 PG (26-34); Mean Corpuscular Volume 91.8 fL (80-100); Monocytes Absolute Auto 600 /uL (0-900); Monocytes Percent Auto 7.2 % (3-14); Neutrophils Absolute Auto 4600 /uL (1500-7000); Platelet Count 188 X10^3/uL (150-400); Red Blood Cell Count 4.85 X10^6/uL (4.5-5.9); Red Cell Distribution Width 13.8 % (11.6-14.8); White Blood Cell Count 7.7 X10^3/uL (4.5-11.0)
[2023-03-28 19:29] LABS: Alanine Aminotransferase 36 IU/L (<50); Albumin Globulin Ratio 1.4 (1.0-2.8); Alkaline Phosphatase 71 U/L (38-126); Aspartate Aminotransferase 29 IU/L (17-59); BUN Creatinine Ratio 18.2 (6-22); Bilirubin Total 0.6 mg/dL (0.2-1.3); Blood Urea Nitrogen 16 mg/dL (9-20); Calcium 9.1 mg/dL (8.4-10.2); Carbon Dioxide 28 mmol/L (22-32); Chloride 103 mmol/L (98-107); Cholesterol 210 mg/dL (140-199); Estimated Glomerular Filt Rate > 60 mL/min (>60); Globulin 2.9 g/dL (1.7-4.1); Glucose 96 mg/dL (70-100); HDL Cholesterol 36 mg/dL (40-60); HEMOLYSIS < 15 (0-50); LDL Cholesterol Calculated 146 mg/dL (<100); Potassium 4.5 mmol/L (3.4-5.1); Sodium 137 mmol/L (137-145); Total Protein 6.9 g/dL (6.3-8.2); Triglycerides 141 mg/dL (35-150)
[2023-03-30 02:32] LABS: Labcorp Hemoglobin (Hb) A1c 5.8 % (4.8-5.6)
== END ==
PROVIDERS: PCP Family Medicine; Visit Provider Family Medicine
DX: E78.2 Mixed hyperlipidemia (principal); I10 Essential (primary) hypertension; R73.01 Impaired fasting glucose; R97.20 Elevated prostate specific antigen [PSA]
CPT/HCPCS: 80053; 80061; 83036; 85025

== ENCOUNTER 2023-06-04 11:58 | Day surgery (SDC) | payer OTHER, SELFPAY ==
[2023-06-04 12:19] VITALS: BMI 31.5
[2023-06-04 12:24] VITALS: BP 133/92; PULSE 72; RESP 17; TEMP 36.8; O2SAT 95
[2023-06-04] MEDS: LACTATED RINGERS 1,000 ML 150 ML IV (12:34)
--- NOTE | 2023-06-04 14:03 | P.HP_ITS ---
History of Present Illness History of Present Illness Date Patient Seen: 06/04/23 Time Patient Seen: 14:03 Chief complaint: Colonoscopy Narrative: 57-year-old man here for screening colonoscopy. Last colonoscopy 12 years ago normal. He has no abdominal pain nausea vomiting. He occasionally has small amount of bright red blood per rectum. No family history of intestinal malignancy. [facility] Medical History Encounter for screening for infections with a predominantly sexual mode of transmission Melanoma (~2019) Migraines (~2009) Pneumothorax (~1989) Skin cancer (~2019) Sleep apnea (~1999) Surgical History Anesthesia History of appendectomy (~1977) History of intestinal surgery History of knee replacement (~2017) Family History Father History of heart disease Mother Breast cancer Grandfather Cancer Grandfather Stroke Grandmother History of heart disease Social History Smoking Status: Never smoker alcohol intake: current Meds Home Medications and Allergies Home Medications Medication Instructions Recorded Confirmed Type rosuvastatin 20 mg tablet 20 mg PO DAILY #90 tabs 03/29/23 06/04/23 Rx Allergies Allergy/AdvReac Type Severity Reaction Status Date / Time hydrocodone [From Vicodin] AdvReac Unknown Nausea Verified 06/04/23 12:18 Exam Vital Signs (past 8 hours): - 06/04/23 12:24 Temperature 98.2 F Pulse Rate 72 Respiratory Rate 17 Blood Pressure 133/92 H Pulse Oximetry 95 Oxygen Delivery Method Room Air Oxygen Delivery Method Room Air Narrative Exam Narrative: General adult man alert oriented no acute distress Chest nonlabored respiration Abdomen soft non tender nondistended Assessment & Plan Assessment & Plan narrative: The patient requires colorectal screening and colonoscopy is recommended. Technical details were discussed. Risks, benefits, alternatives explained. Risks including but not limited to myocardial infarction, aspiration, bleeding, pain, missed lesion, incomplete examination, need for further radiographic studies, colonic perforation, and need for major abdominal surgery were discussed. All questions were answered to their satisfaction, and they are in agreement with this plan.
--- NOTE | 2023-06-04 14:07 | P.OP.COLON_ITS ---
Operative Date/Time/Diagnoses Date of procedure: 06/04/23 Time of procedure: 14:07 Pre-op diagnosis: Colorectal screening Procedure & Clinicians Study performed: Colonoscopy Same procedure as scheduled: Yes Indications: Colorectal screening Surgeon: Per Sorenson Procedure Notes Procedure in detail: The history and physical was performed/updated and the patient is ASA class is 2. The procedure was discussed in detail with the patient. Potential risks complications including infection, bleeding, missed diagnosis, perforation, need for surgery, and were explained. Their questions were answered and informed consent was obtained. Patient was brought to the procedure room and placed standard monitoring equipment. The patient's vital signs were monitored continuously throughout the entire procedure. Prior to starting time-out was performed. The patient was placed in the left lateral recumbent position. Procedural sedation was administered by anesthesia. Examination began with a thorough inspection of the perianal area there was no evidence of fissures, fistulae, external hemorrhoids or cutaneous malignancy. The colonoscopy scope was then placed into the anal canal and was advanced to the cecum, which was identified by the ileocecal valv e, the appendiceal orifice and the confluence of the taenia. The scope was then slowly withdrawn examining colon thoroughly in all directions, irrigating it of any residual stool. No masses or polyps. Sigmoid diverticulosis. Quality of the prep was fair The patient tolerated the procedure well. They will be discharged once criteria are met. The prep was of good/excellent quality. The withdrawl time was 7 minutes. Specimen(s): none sent Impression: Normal colonoscopy Post-procedure Recommendations: Colonoscopy in 10 years Disposition: same day surgery
[2023-06-04 14:33] VITALS: BP 133/93; PULSE 69; RESP 15; TEMP 36.1; O2SAT 92
[2023-06-04 14:38] VITALS: BP 126/92; PULSE 64; RESP 14; O2SAT 92
[2023-06-04 14:43] VITALS: BP 126/87; PULSE 62; RESP 12; O2SAT 93
[2023-06-04 14:51] VITALS: BP 118/85; PULSE 58; RESP 15; O2SAT 95
[2023-06-04 15:35] VITALS: BP 150/96; PULSE 74; RESP 16; TEMP 36.4; O2SAT 98
== END 2023-06-04 15:44 | disposition home or self-care (01) ==
PROVIDERS: PCP Family Medicine; Referring Provider Surgery; Visit Provider Surgery
PROC: 0DJD8ZZ Inspection of Lower Intestinal Tract, Via Natural or Artificial Opening Endoscopic (ICD-10-PCS; CPT 45378; principal; 2023-06-04 13:00)
DX: Z12.11 Encounter for screening for malignant neoplasm of colon (principal); K57.30 Diverticulosis of large intestine without perforation or abscess without bleeding
CPT/HCPCS: 45378; J3010

== ENCOUNTER → 2023-12-05 09:02 | Outpatient (CLI) | payer OTHER, SELFPAY ==
[2023-12-05 20:47] LABS: Alanine Aminotransferase 40 IU/L (<50); Albumin 3.8 g/dL (3.5-5.0); Albumin Globulin Ratio 1.4 (1.0-2.8); Alkaline Phosphatase 65 U/L (38-126); Aspartate Aminotransferase 33 IU/L (17-59); BUN Creatinine Ratio 24.4 (6-22); Bilirubin Total 0.6 mg/dL (0.2-1.3); Blood Urea Nitrogen 19 mg/dL (9-20); Calcium 9.6 mg/dL (8.4-10.2); Carbon Dioxide 28 mmol/L (22-32); Chloride 102 mmol/L (98-107); Cholesterol 169 mg/dL (140-199); Estimated Glomerular Filt Rate > 60 mL/min (>60); Globulin 2.8 g/dL (1.7-4.1); Glucose 97 mg/dL (80-110); HDL Cholesterol 35 mg/dL (40-60); HEMOLYSIS < 15 (0-50); LDL Cholesterol Calculated 115 mg/dL (<100); Potassium 4.1 mmol/L (3.4-5.1); Sodium 136 mmol/L (137-145); Total Protein 6.6 g/dL (6.3-8.2); Triglycerides 96 mg/dL (35-150)
[2023-12-05 20:55] LABS: Hemoglobin A1C% w Est Avg Glu 5.6 % (4.0-6.0)
[2023-12-05 21:28] LABS: Prostate Specific Antigen Scrn 5.52 ng/mL (0.1-4.0)
== END ==
PROVIDERS: PCP Family Medicine; Visit Provider Family Medicine
DX: E78.2 Mixed hyperlipidemia (principal); R97.20 Elevated prostate specific antigen [PSA]; R73.01 Impaired fasting glucose; I10 Essential (primary) hypertension; D72.829 Elevated white blood cell count, unspecified; Z12.5 Encounter for screening for malignant neoplasm of prostate
CPT/HCPCS: 80053; 80061; 83036; G0103

== ENCOUNTER → 2025-07-28 10:20 | Outpatient (CLI) | payer BC, SELFPAY ==
[2025-07-28 19:27] LABS: Add Manual Diff / Slide Review NO; Hematocrit 46.1 % (41-53); Hemoglobin 16.1 g/dL (13.5-17.5); Lymphocytes Absolute Auto 2400 /uL (1100-4500); Mean Corpuscular HGB Conc 35.0 % (30-36); Mean Corpuscular Hemoglobin 31.9 PG (26-34); Mean Corpuscular Volume 91.1 fL (80-100); Platelet Count 177 X10^3/uL (150-400)
[2025-07-28 19:29] LABS: Alanine Aminotransferase 30 IU/L (<50); Albumin 4.3 g/dL (3.5-5.0); Albumin Globulin Ratio 1.7 (1.0-2.8); Alkaline Phosphatase 63 U/L (38-126); Blood Urea Nitrogen 20 mg/dL (9-20); Calcium 10.0 mg/dL (8.4-10.2); Carbon Dioxide 26 mmol/L (22-32); Chloride 104 mmol/L (98-107); Cholesterol 145 mg/dL (140-199); Estimated Glomerular Filt Rate > 60 mL/min (>60); Globulin 2.6 g/dL (1.7-4.1); Glucose 105 mg/dL (70-99); HDL Cholesterol 38 mg/dL (40-60); HEMOLYSIS < 15 (0-50); Potassium 4.4 mmol/L (3.4-5.1); Sodium 138 mmol/L (137-145); Total Protein 6.9 g/dL (6.3-8.2); Triglycerides 111 mg/dL (35-150)
== END ==
PROVIDERS: PCP Family Medicine; Visit Provider Physician Assistant
DX: I10 Essential (primary) hypertension (principal); R97.20 Elevated prostate specific antigen [PSA]; Z79.899 Other long term (current) drug therapy
CPT/HCPCS: 80053; 80061; 85025; G0103